=== PATIENT | female | born 1945 | race Caucasian/White ===

== ENCOUNTER 2024-03-12 12:14 | Emergency (ER) | payer MEDICARE, SELFPAY ==
[2024-03-12 12:19] VITALS: BP 157/62
[2024-03-12 12:54] VITALS: BMI 28.6
--- NOTE | 2024-03-12 13:10 | EDRN ---
Received patient on stretcher. Patient stated that she woke up this morning around 0600 with dizziness,headache and nausea. Denies visual changes,numbness/tingling,speech difficulty and weakness. stated that the patient is having trouble
remembering events from this morning. Patient stated that what her said is correct.
--- NOTE | 2024-03-12 13:19 | ED.GENMED ---
History of Present Illness
General
Chief Complaint: Dizziness
Source: patient
Exam Limitations: none
Time Seen by Provider: 03/12/24 12:28
Nursing documentation reviewed up to this point in time: agreed with
History of Present Illness
History of Present Illness:
The patient is a 78-year-old female who comes in with complaints of a feeling of dizziness, pressure in her left face and head, as well as intermittent nausea. However, patient denies any severe headaches. She denies recent fever and rash. She
denies any neck pain. Patient reports that she has chronic sinus issues and is not sure if this is contributing to this, however, she denies any mucus production out of the nose or sore throat. Patient denies any weakness or numbness. She denies
any tingling down her arms or legs. She denies visual changes. She reports that the dizziness increases when she shakes her head from [id number]. She denies ear pain. Patient also reports mild intermittent chest pain.
Past History
Past History
ED Past Medical History: GERD, HTN, Hypercholesterolemia, Psychiatric (Anxiety and depression), Other (migraines, osteoarthritis, vertigo) and Other (history of suggested transient global amnesia)
ED Past Surgical History: Orthopedic (Bunionectomy, left total hip replacement) and Other (Removal of canine teeth)
Social History
Tobacco: Non-smoker
Alcohol: None
Drug: None
Personal:
Living: with family
Employment: Retired
Family History
Family History: Other (reviewed and noncontributory)
Review of Systems
Review of Systems
Allergies reviewed?: Yes
All Other Systems: ROS reviewed and negative except as documented in HPI and ROS
Constitutional: Reports no symptoms
EENT: Reports no symptoms
Respiratory: Reports no symptoms
Cardiac: Reports chest pain
ABD/GI: Reports nausea
: Reports no symptoms
Musculoskeletal: Reports no symptoms
Skin: Reports no symptoms
Neurological: Reports dizzy
Endocrine: Reports no symptoms
Hematologic/Lymphatic: Reports no symptoms
Psychiatric: Reports no symptoms
Phy Exam
Physical Exam
Physical Exam:
Physical Exam
General: no apparent distress, not acutely ill
Neck: supple. no meningeal signs. normal psoterior pharynx
Heart: s1/s2 regular rate and rhythm, no murmur. equal radial pulses.
Lungs: no acute respiratory distress. clear bilaterally
Abdomen: normal bowel sounds. not tender. no CVAT
Neuro: alert and orientedx3. no focal neurological deficits, 5 out of 5 strength in all extremities without drift. Normal [id number]
Skin: no rash
Psychiatric: well kept. interactive and cooperative
Extremities: no edema. no calf tenderness. negative homans. good distal pulses
Course
Orders/Labs/Results
Orders:
Orders
03/12/24 12:46
EKG [Electrocardiogram (*1)] Urgent
Reason for Study: Vertigo / Dizzy
EKG- Treatment ONCE
03/12/24 13:00
Troponin I Urgent
03/12/24 13:08
CMP [Comprehensive Metabolic Panel] Urgent
Complete Blood Count/No Diff Urgent
03/12/24 13:11
CT Head W/o Iv Contrast Urgent
Comment:
Reason For Exam: dizziness/headache/memory problems
03/12/24 13:12
0.9% Sodium Chloride 1000 ml [Nss] 1,000 ml IV BOLUS
Ondansetron Injectable [Zofran] 4 mg IV NOW STA
03/12/24 13:18
Diphenhydramine [Benadryl] 25 mg IV NOW STA
Metoclopramide [Reglan] 10 mg IV NOW STA
03/12/24 13:19
Urinalysis Reflex To Culture Urgent
03/12/24 14:57
Meclizine [Antivert] 50 mg PO NOW STA
03/12/24 14:59
Ondansetron Injectable [Zofran] 4 mg IV NOW STA
03/12/24 15:30
Butalb/Acetaminophen/Caffeine [Fioricet] 1 tab PO NOW STA
Abnormal Lab Results
03/12/24
13:08
BUN 22 H mg/dl
(7-17)
Glucose 119 H mg/dl
(70-99)
03/12/24 13:08
03/12/24 13:08
Vital Signs
Initial and Last Documented VS:
Initial Vital Signs
Temp Pulse Resp BP Pulse Ox
98.2 F 64 16 157/62 98
03/12/24 12:19 03/12/24 12:19 03/12/24 12:19 03/12/24 12:19 03/12/24 12:19
Last Documented Vital Signs
Temp Pulse Resp BP Pulse Ox
98.2 F 74 17 144/72 96
03/12/24 12:19 03/12/24 15:17 03/12/24 15:17 03/12/24 15:17 03/12/24 14:45
MDM/Problems Addressed
Differential Diagnosis Includes:
Vertigo, acute migraine headache, CVA
MDM/Problems Addressed:
Patient presents with acute dizziness and nausea
Acute Exacerbation and/or Progression of Chronic Illness: HTN
*Radiology
Radiology exam reviewed: radiology read reviewed
*Pulse Oximetry
Patient hypoxic: no
*EKG
Interpreted by ED Provider?: Yes
Interpretation: normal
Comparison EKG: no changes
Rate: normal
Rhythm: sinus
[place]: normal axis
Interval: normal interval
QRS Pattern: normal QRS
Ischemia: no ischemia
*Sports Announcer Interpretation
Rate: normal
Interpretation: normal
Rhythm: sinus
*Critical Care Note
Total Time (30-74mins, 75-104mins- exclusive of procedures): Not Applicable
Data Reviewed
Review of Other/Old Records Reveals: Operative Reports (Endoscopy reviewed from 2019 which showed patient has gastritis and abnormal esophageal motility)
Source: patient and spouse
Patient Management
Social determinants of health affecting care: Living situation and Strong social support
Escalation/DeEscalation of care consider admission/obs:
Patient has a nonischemic appearing EKG and normal troponin and continues to look well, therefore, is doubtful she is acute coronary syndrome. Patient has a very normal neurological exam and has a negative CT head. Is doubtful she is having an
acute stroke. She reports that the Reglan and Benadryl helped with her dizziness but she still has some mild dizziness and mild pressure on the left side of her head. Clinically she looks extremely well and there is no sign of subarachnoid
hemorrhage or meningitis. Patient may have benign positional vertigo. She may also have a migraine headache. Her abdomen remains soft and nontender.
ED Attending Note
-
Portions of this chart may have been created with voice recognition software.� Occasional wrong word or��sound alike� substitutions may have occurred due to the inherent limitations of voice recognition software.
Discharge Plan
Departure
Patient Disposition: Home (Routine Discharge)
Date of Disposition: 03/12/24
Time of Disposition: 15:36
Patient with high blood pressure during this ER visit?: Yes
Covid-19: Not Applicable
Discharge Problem:
Dizziness, Headache
Instructions: Headache, Adult ED, Dizziness
Prescriptions:
New
meclizine 25 mg tablet
25 mg PO BID PRN (Reason: dizziness) Qty: 14 0RF
ondansetron 4 mg tablet,disintegrating
4 mg PO Q8H PRN (Reason: nausea and vomiting) Qty: 14 0RF
No Action
multivitamin 1 EACH tablet
3 ea PO DAILY
cyanocobalamin (vitamin B-12) 1,000 MCG tablet
1,000 mcg PO BID
zinc 50 MG tablet
50 mg PO BID
magnesium 250 MG tablet
250 mg PO DAILY
zolpidem 5 MG tablet
5 mg PO HS
methadone 5 MG tablet
5 mg PO TID
rosuvastatin 10 MG tablet
10 mg PO QPM
omega [id number] oil [Fish Oil] 1 EACH capsule
3 ea PO DAILY
Vitamin D3:
125 mcg PO DAILY
docusate sodium [Colace] 100 MG capsule
100 mg PO BID PRN (Reason: constipation) Qty: 60 0RF
Rx Instructions:
1 twice a day to prevent constipation
sennosides [senna] 8.6 MG tablet
8.6 mg PO BID PRN (Reason: constipation) Qty: 60 0RF
ondansetron [Zofran ODT] 8 MG tablet,disintegrating
4 mg PO TID PRN (Reason: nausea) Qty: 30 0RF
celecoxib 200 MG capsule
200 mg PO DAILY 30 Days Qty: 30 0RF
acetaminophen 325 MG tablet
650 mg PO Q4HWA 0RF
aspirin 81 MG tablet,delayed release (DR/EC)
81 mg PO DAILY 0RF
tramadol 50 MG tablet
50 mg PO Q6HPRN PRN (Reason: mild pain) 15 Days Qty: 40 0RF
oxycodone-acetaminophen 5 MG/325 MG tablet
1 tab PO Q12H PRN (Reason: pain not relieved by tramadol) 15 Days Qty: 30 0RF
Referrals:
Jemal Gray PA-C [Family Provider] -
Manish Valderrama MD [Active] - (Call Saturday to for next open appointment)
Activity Restrictions/Additional Instructions:
Return for any fever or vision changes. Return for weakness or numbness.
Interventions
Interventions:
*Risk Screen - Suicide Last Done: 03/12/24 12:19
*General Assessment Last Done: 03/12/24 12:19
*Neglect/Abuse Screening Last Done: 03/12/24 12:19
ED- Fall Risk Assessment Last Done: 03/12/24 12:54
*ED COVID-19 Vaccine History Last Done: 03/12/24 12:54
ED- Cardiac Assessment Last Done: 03/12/24 12:54
ED- Neurological Assessment Last Done: 03/12/24 12:54
ED Swallowing Screen Last Done: 03/12/24 14:30
Discharge Date and Time
Print Language: MACEDONIAN
[2024-03-12 13:21] LABS: Hematocrit 44.5 % (37.0-47.0); Mean Corp Hgb Conc. 33.7 g/dL (33.0-37.0); Mean Corpuscular Hgb 30.5 pg (27.0-31.0); Mean Corpuscular Volume 90.4 fL (81.0-99.0); Mean Platelet Volume 10.2 fL (7.4-10.4); Platelet Count 160 10^3/uL (130-400); Red Blood Cell Count 4.92 10^6/uL (4.20-5.40); Red Cell Dist. Width 13.9 % (11.5-14.5); White Blood Cell Count 6.3 10^3/uL (4.8-10.8)
[2024-03-12] MEDS: REGLAN 10 MG IV (13:21)
[2024-03-12] MEDS: NSS 1000 IV (13:21)
[2024-03-12] MEDS: BENADRYL 25 MG IV (13:21)
[2024-03-12 13:33] LABS: ALT (SGPT) 18 U/L (0-35); AST (SGOT) 30 U/L (14-36); Albumin 4.4 g/dl (3.5-5.0); Alkaline Phosphatase 99 U/L (38-126); Blood Urea Nitrogen 22 mg/dl (7-17); Calcium 9.6 mg/dl (8.4-10.2); Carbon Dioxide 29 mmol/L (22-30); Chloride 103 mmol/L (98-107); Estimated Creatinine Clearance 51 ml/min; Glucose 119 mg/dl (70-99); Potassium 4.3 mmol/L (3.5-5.1); Sodium 137 mmol/L (135-145); Total Bilirubin 0.4 mg/dl (0.2-1.3); Total Protein 6.9 g/dl (6.3-8.2); eGFR > 60.00
[2024-03-12 13:44] LABS: Troponin I < 0.012 ng/ml
[2024-03-12 14:31] VITALS: BP 127/73
[2024-03-12] MEDS: ZOFRAN 4 MG IV (15:16)
[2024-03-12] MEDS: ANTIVERT 50 MG PO (15:16)
[2024-03-12 15:17] VITALS: BP 144/72
[2024-03-12] MEDS: FIORICET 1 TAB PO (15:35)
[2024-03-12 16:15] VITALS: BP 163/71
--- NOTE | 2024-03-12 16:15 | EDRN ---
Reviewed discharge instructions with patient. Verbalized understanding. Taken to lobby in wheelchair.
== END 2024-03-12 16:20 | disposition home or self-care (01) ==
LOC: EMR 12:14
PROVIDERS: EMERGENCY PHYSICIAN Emergency Medicine; FAMILY PHYSICIAN Physician Assistant Medical
DX: R42 Dizziness and giddiness (principal); R51.9 Headache, unspecified; K21.9 Gastro-esophageal reflux disease without esophagitis; I10 Essential (primary) hypertension; E78.00 Pure hypercholesterolemia, unspecified; F41.8 Other specified anxiety disorders; M19.90 Unspecified osteoarthritis, unspecified site; G45.4 Transient global amnesia
CPT/HCPCS: 99284; 96374; 96375; 96376; 96361; 70450; 80053; 84484; 85027; 93005

== ENCOUNTER → 2025-02-22 10:30 | Outpatient (REF) | payer MEDICARE, SELFPAY | LOC: HWRAD 10:30 | PROVIDERS: ATTENDING PHYSICIAN Physician Assistant Medical | DX: M85.80 Other specified disorders of bone density and structure, unspecified site (principal); M81.0 Age-related osteoporosis without current pathological fracture | CPT/HCPCS: 77080 ==

== ENCOUNTER → 2025-07-02 07:42 | Outpatient (REF) | payer MEDICARE, SELFPAY | LOC: PAVMRI 07:42 | PROVIDERS: ATTENDING PHYSICIAN Physician Assistant Medical | DX: R51.9 Headache, unspecified (principal) | CPT/HCPCS: 70553; A9575 ==